=== PATIENT | male | born 1985 | race African-American/Black ===

== ENCOUNTER → 2017-11-29 | Outpatient (CLI) | payer OTHER ==
--- NOTE | 2017-11-30 08:32 | EKG ---
Date Performed: 11/29/2017 Time Performed: 09:11:52 PTAGE: 32 years EKG: Sinus rhythm . Inferior T wave changes are nonspecific Early repolarization noted, consider anterior injury patter n less likely Borderline ECG NO PREVIOUS TRACING DOCTOR: Damon Li Interpretating Date/Time 11/30/2017 08:30:55
== END ==
LOC: HCAV 09:01
DX: F90.9 Attention-deficit hyperactivity disorder, unspecified type (principal); R94.31 Abnormal electrocardiogram [ECG] [EKG]
CPT/HCPCS: 93005